=== PATIENT | male | born 1980 | race Caucasian/White ===

== ENCOUNTER 2022-06-15 20:05 | Emergency (ER) | payer OTHER, SELFPAY ==
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
[2022-06-15 20:18] VITALS: BP 143/87; PULSE 67; RESP 18; TEMP 36.4; O2SAT 96; BMI 27.5
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
[2022-06-15] MEDS: Lidocaine 4 % Cream KIT 1 APPL TOPICAL (22:56)
--- NOTE | 2022-06-15 22:56 | PC.NURSE ---
Wounds cleaned. LMX applied to lacs. Awaiting MD and sutures.
[2022-06-15] MEDS: Acetaminophen 325 MG TABLET 650 MG PO (23:32)
--- NOTE | 2022-06-15 23:32 | PC.NURSE ---
Medicated with Tylenol for 10/10 pain. Awaiting sutures.
== END 2022-06-16 01:07 | disposition home or self-care (01) ==
PROVIDERS: Emergency Provider Emergency Medicine Emergency Medical Services
DX: S01.81XA Laceration without foreign body of other part of head, initial encounter (principal); R51.9 Headache, unspecified; M79.602 Pain in left arm; M54.2 Cervicalgia; M79.642 Pain in left hand; M79.641 Pain in right hand; Y04.2XXA Assault by strike against or bumped into by another person, initial encounter; Y93.9 Activity, unspecified; Y92.9 Unspecified place or not applicable; Y99.9 Unspecified external cause status; Z79.899 Other long term (current) drug therapy
CPT/HCPCS: 12052; 70450; 70486; 72125; 73060; 73080; 73140; 99283; 99284

== ENCOUNTER 2022-06-24 12:16 | Emergency (ER) | payer OTHER, SELFPAY ==
[2022-06-24 12:26] VITALS: BP 138/81; PULSE 67; RESP 18; TEMP 36.7; O2SAT 94; BMI 26.6
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
== END 2022-06-24 12:40 | disposition home or self-care (01) ==
PROVIDERS: Emergency Provider Student in an Organized Health Care Education/Training Program
DX: Z48.02 Encounter for removal of sutures (principal); S01.111D Laceration without foreign body of right eyelid and periocular area, subsequent encounter; S01.511D Laceration without foreign body of lip, subsequent encounter; X58.XXXD Exposure to other specified factors, subsequent encounter
CPT/HCPCS: 99283